=== PATIENT | male | born 1975 | race American Indian/Alaskan Native ===

== ENCOUNTER 2017-05-15 12:14 | Emergency (ER) | payer SELFPAY ==
[2017-05-15 12:53] VITALS: BP 135/87
--- NOTE | 2017-05-15 13:09 | Emergency Department Report ---
ED ENT HPI - General Chief complaint: Dental/Oral Stated complaint: LIP EDEMA Time Seen by Provider: 05/15/17 13:00 Source: patient Mode of arrival: Ambulatory Limitations: No Limitations - History of Present Illness Initial comments: PT states he woke up yesterday with swollen lip and face. PT states his gum was swollen. PT state has a hx of dental decay. PT denies recent dental work. PT states he took a Benadryl. PT states the swelling has gone down but the gum is still bothering him. MD complaint: other (gum infection ) -: Gradual, days(s) Severity: mild (gum irritation ) Severity scale (0 -10): 3 Quality: other (irritated ) Consistency: constant Improves with: other medication (Benadryl helped him sleep ) Context- Dental: history of dental caries, poor dental care (last dental visit was a couple of years ago ) Associated Symptoms: gum swelling. denies: fever, toothache, sore throat - Related Data Previous Rx's Medication Instructions Recorded Last Taken Type Amoxicillin 500 mg PO BID #20 capsule 05/15/17 Unknown Rx Chlorhexidine Mouthwash [Peridex] 15 ml MM BID 7 Days 05/15/17 Unknown Rx Allergies Allergy/AdvReac Type Severity Reaction Status Date / Time No Known Allergies Allergy Unverified 05/15/17 12:53 ED Dental HPI - General Chief complaint: Dental/Oral Stated complaint: LIP EDEMA Time Seen by Provider: 05/15/17 13:00 Source: patient Mode of arrival: Ambulatory Limitations: No Limitations - Related Data Previous Rx's Medication Instructions Recorded Last Taken Type Amoxicillin 500 mg PO BID #20 capsule 05/15/17 Unknown Rx Chlorhexidine Mouthwash [Peridex] 15 ml MM BID 7 Days 05/15/17 Unknown Rx Allergies Allergy/AdvReac Type Severity Reaction Status Date / Time No Known Allergies Allergy Unverified 05/15/17 12:53 ED Review of Systems ROS: Stated complaint: LIP EDEMA Other details as noted in HPI Comment: All other systems reviewed and negative Constitutional: denies: chills, fever ENT: as per HPI Gastrointestinal: denies: abdominal pain, nausea, vomiting Skin: denies: change in color ED Past Medical Hx - Past Medical History Previous Medical History?: No - Surgical History Past Surgical History?: No - Social History Smoking Status: Current Every Day Smoker Substance Use Type: Alcohol - Medications Home Medications: Home Medications Medication Instructions Recorded Confirmed Last Taken Type Amoxicillin 500 mg PO BID #20 capsule 05/15/17 Unknown Rx Chlorhexidine Mouthwash [Peridex] 15 ml MM BID 7 Days 05/15/17 Unknown Rx ED Physical Exam - General Limitations: No Limitations General appearance: alert, in no apparent distress - Head Head exam: Present: atraumatic, normocephalic, normal inspection, other (no facial swelling noted ) - Eye Eye exam: Present: normal appearance, conjunctival injection Pupils: Present: normal accommodation - ENT ENT exam: Present: normal orophraynx, mucous membranes moist, TM's normal bilaterally, normal external ear exam - Expanded ENT Exam Expanded Mouth exam: Absent: drooling, trismus Teeth exam: Present: dental caries. Absent: gingival enlargement 1 - Other (tooth with dental decay, gum erythema noted, no dental abscess noted ) Throat exam: Positive: normal inspection - Neck Neck exam: Present: normal inspection, full ROM. Absent: lymphadenopathy - Respiratory Respiratory exam: Present: normal lung sounds bilaterally. Absent: respiratory distress - Cardiovascular Cardiovascular Exam: Present: regular rate, normal rhythm - Extremities Exam Extremities exam: Present: normal inspection, full ROM - Back Exam Back exam: Present: normal inspection, full ROM - Neurological Exam Neurological exam: Present: alert, oriented X3 - Psychiatric Psychiatric exam: Present: normal affect, normal mood - Skin Skin exam: Present: warm, dry, intact, normal color. Absent: rash ED Course Vital Signs 05/15/17 12:51 Temperature 98.2 F Pulse Rate 81 Respiratory 18 Rate Blood Pressure 135/87 O2 Sat by Pulse 98 Oximetry - Reevaluation(s) Reevaluation #1: 05/15/17 13:10 PT aware of dx and plan of care. PT given strict return precautions. - Pulse Oximetry Interpretation Digit-Finger Initial Pulse Oximetry Readin Actions Taken: none ED Medical Decision Making - Differential Diagnosis dental decay, abscess, gingivitis Critical Care Time: No Critical care attestation.: If time is entered above; I have spent that time in minutes in the direct care of this critically ill patient, excluding procedure time. ED Disposition Clinical Impression: Gingivitis Disposition: - TO HOME OR SELFCARE Is pt being admited?: No Does the pt Need Aspirin: No Condition: Stable Instructions: Dental Caries (ED), Gingivitis (ED) Additional Instructions: Good oral hygiene. Follow up with Dentist in 2-3 days Return to the ED if facial swelling returns, you have trouble opening your mouth or drooling. Prescriptions: Amoxicillin 500 mg PO BID #20 capsule Chlorhexidine Mouthwash [Peridex] 15 ml MM BID 7 Days Referrals: FLOYD DIAZ MD [Staff Physician] - 3-[address] [facility] [Outside] - 3-5 Days [facility] [Outside] - 3-5 Days Forms: Work/School Release Form(ED) Time of Disposition: 13:13
== END 2017-05-15 13:32 | disposition home or self-care (01) ==
LOC: ED 12:14
DX: K05.10 Chronic gingivitis, plaque induced (principal); F17.210 Nicotine dependence, cigarettes, uncomplicated
CPT/HCPCS: 99282